=== PATIENT | female | born 1975 | race Two or more races ===

== ENCOUNTER 2018-12-04 13:26 | Emergency (ER) | payer MEDICAID ==
[~2018-12-04] VITALS: Ht 157.5 cm; Wt 73.0 kg
[2018-12-04] MEDS ORDERED: AMLODIPINE 5MG TABLET PO ONE (14:30)
[2018-12-04] MEDS ORDERED: LOSARTAN POTASSIUM 25 MG TABLET PO ONE (14:30)
[2018-12-04 14:40] LABS: BASOPHILS % 0.8 % (0.0-2.0); EOSINOPHILS % 1.5 % (0.0-5.0); HEMATOCRIT. 39.2 % (36.0-48.0); HEMOGLOBIN. 13.2 g/dL (12.0-16.0); MEAN CORPUSCULAR HEMOGLOBIN 34.1 pg (28.0-32.0); MEAN CORPUSCULAR VOLUME 101.3 fL (81.0-99.0); MEAN PLATELET VOLUME 7.5 fl (7.4-10.4); MONOCYTES % 9.5 % (2.0-8.0); NEUTROPHILS % 56.2 % (40.0-76.0); PLATELET 265 x1000/uL (130-400); RED BLOOD CELL COUNT 3.87 mill/uL (4.2-5.4)
[2018-12-04 14:58] LABS: CHLORIDE 106 mEq/L (98-107)
[2018-12-04 15:12] LABS: HCG SCREEN INDETERMINATE
[2018-12-04] MEDS ORDERED: ASPIRIN 325MG EC TABLET PO ONE (15:45)
[2018-12-04 18:06] VITALS: BP 153/84
== END 2018-12-04 18:34 | disposition home or self-care (01) ==
LOC: ER 13:43
DX: I10 Essential (primary) hypertension (principal); F32.9 Major depressive disorder, single episode, unspecified; I48.91 Unspecified atrial fibrillation; M54.5 Low back pain; R10.30 Lower abdominal pain, unspecified; R07.89 Other chest pain; F17.200 Nicotine dependence, unspecified, uncomplicated; Z91.14 Patient's other noncompliance with medication regimen; Z98.890 Other specified postprocedural states; Z87.19 Personal history of other diseases of the digestive system
CPT/HCPCS: 36415; 71045; 81025; 84484; 84702; 84703; 93005; 99284

== ENCOUNTER 2020-12-31 13:06 | Emergency (ER) | payer MEDICAID ==
[~2020-12-31] VITALS: Ht 157.5 cm; Wt 59.0 kg
[2020-12-31] MEDS ORDERED: MORPHINE SULFATE 4 MG/ML CPJ (NOT FOR IM USE) IV STA (15:07)
[2020-12-31 16:11] VITALS: BP 186/103
[2020-12-31] MEDS ORDERED: HYDROCODONE/ACETAMINOPHEN 5/325MG TABLET PO ONE (16:15)
[2020-12-31] MEDS ORDERED: IBUPROFEN 400MG TABLET PO ONE (16:15)
[2020-12-31] MEDS ORDERED: HYDR-4001 MT (16:53)
[2020-12-31] MEDS ORDERED: IBUP-2028 MT (16:53)
== END 2020-12-31 17:13 | disposition home or self-care (01) ==
LOC: ER 13:26
DX: K43.9 Ventral hernia without obstruction or gangrene (principal); I48.91 Unspecified atrial fibrillation; J45.909 Unspecified asthma, uncomplicated; F31.9 Bipolar disorder, unspecified; I10 Essential (primary) hypertension; Z98.890 Other specified postprocedural states; Z87.19 Personal history of other diseases of the digestive system
CPT/HCPCS: 74018; 81025; 99283

== ENCOUNTER 2024-01-24 10:19 | Emergency (ER) | payer MEDICAID ==
[~2024-01-24] VITALS: Ht 157.5 cm; Wt 67.0 kg
[~2024-01-24 10:19] MED LIST: HYDR-4001 MT; IBUP-2028 MT
[2024-01-24 10:31] VITALS: TEMP 97.9; O2SAT 99
[2024-01-24] MEDS ORDERED: IBUPROFEN 800MG TABLET PO ONE (11:15)
[2024-01-24 11:18] LABS: BASOPHILS % 0.7 % (0.0-2.0); DIFFERENTIAL COMMENT 0; EOSINOPHILS % 0.6 % (0.0-5.0); HEMATOCRIT. 41.8 % (36.0-48.0); HEMOGLOBIN. 13.9 g/dL (12.0-16.0); LYMPHOCYTES % 28.3 % (20.0-50.0); MEAN CORPUSCULAR HEMOGLOBIN 33.3 pg (28.0-32.0); MEAN CORPUSCULAR HGB CONC 33.2 g/dL (31.0-37.0); MEAN CORPUSCULAR VOLUME 100.3 fL (81.0-99.0); MEAN PLATELET VOLUME 7.2 fl (7.4-10.4); MONOCYTES % 8.6 % (2.0-8.0); NEUTROPHILS % 61.8 % (40.0-76.0); PLATELET 291 x1000/uL (130-400); RED BLOOD CELL COUNT 4.17 mill/uL (4.2-5.4); RED CELL DISTRIBUTION WIDTH 13.3 % (11.6-14.6); WHITE BLOOD COUNT 10.4 x1000/uL (4.5-11.0)
[2024-01-24 11:24] LABS: CHLORIDE 107 mEq/L (98-107); POTASSIUM 4.1 mEq/L (3.5-5.1); SODIUM 139 mEq/L (136-145)
[2024-01-24 11:25] LABS: CARBON DIOXIDE 28 mEq/L (21-32)
[2024-01-24 11:26] LABS: CALCIUM 9.3 mg/dL (8.7-10.4)
[2024-01-24 11:30] LABS: CREATININE 0.9 mg/dL (0.6-1.0); GLUCOSE 92 mg/dL (70-105); UREA NITROGEN BLOOD 12 mg/dL (9-23)
[2024-01-24] MEDS ORDERED: NAPR500T7 MT (11:51)
[2024-01-24] MEDS: IBUPROFEN 800MG TABLET PO NR (11:54)
[2024-01-24 12:04] VITALS: BP 130/72; PULSE 72; RESP 16; O2SAT 99
[2024-01-24 12:22] LABS: CLARITY URINE CLEAR (CLEAR); COLOR URINE YELLOW (YELLOW); GLUCOSE URINE NEGATIVE (NEGATIVE); KETONES URINE NEGATIVE (NEGATIVE); LEUKOCYTE ESTERASE URINE NEGATIVE (NEGATIVE); NITRITE URINE NEGATIVE (NEGATIVE); OCCULT BLOOD URINE NEGATIVE (NEGATIVE); PH URINE 5.5 (4.5-8.0); PROTEIN URINE NEGATIVE (NEGATIVE); SPECIFIC GRAVITY URINE 1.005 (1.005-1.030); UROBILINOGEN URINE 0.2 E.U./dL (0.2-1.0)
== END 2024-01-24 12:05 | disposition home or self-care (01) ==
LOC: ER 11:46
DX: M25.561 Pain in right knee (principal); R42 Dizziness and giddiness; J45.909 Unspecified asthma, uncomplicated; F31.9 Bipolar disorder, unspecified; I10 Essential (primary) hypertension; K80.20 Calculus of gallbladder without cholecystitis without obstruction; Z79.899 Other long term (current) drug therapy
CPT/HCPCS: 36415; 73560; 80048; 81003; 81025; 85025; 93005; 99284